=== PATIENT | male | born 1935 | race Two or more races ===

== ENCOUNTER 2018-09-02 22:23 | Emergency (ER) | payer SELFPAY ==
[~2018-09-02] VITALS: Ht 167.6 cm; Wt 88.5 kg
[2018-09-02 23:50] VITALS: BP 136/70
== END 2018-09-02 23:50 | disposition home or self-care (01) ==
LOC: ER 22:23
DX: Z04.1 Encounter for examination and observation following transport accident (principal); F10.920 Alcohol use, unspecified with intoxication, uncomplicated; E11.9 Type 2 diabetes mellitus without complications; Y90.0 Blood alcohol level of less than 20 mg/100 ml; V43.52XA Car driver injured in collision with other type car in traffic accident, initial encounter; Y93.89 Activity, other specified; Y99.8 Other external cause status; Y92.410 Unspecified street and highway as the place of occurrence of the external cause

== ENCOUNTER 2023-04-19 01:23 | Inpatient (IN) | payer OTHER ==
[~2023-04-19] VITALS: Ht 167.6 cm; Wt 81.8 kg
[2023-04-19] VITALS (9 sets, daily range): BP systolic 103–165; BP diastolic 62–87; PULSE 54–91; RESP 17–19; TEMP 36.9; O2SAT 92–98
[~2023-04-19 01:23] MED LIST: AMIO200T13 PO; ATOR20TA50 PO; CLOP75TA28 PO; LOSA50TA46 PO; MET50T PO
[2023-04-19] MEDS ORDERED: SITA25TA3 PO (03:12)
[2023-04-19] MEDS ORDERED: FUR20T PO (03:12)
[2023-04-19] MEDS ORDERED: GABA-1250 PO (03:12)
[2023-04-19] MEDS ORDERED: ACETAMINOPHEN 325 MG TAB PO PRN ×2 (04:15→04:30)
[2023-04-19] MEDS ORDERED: HYDROcodone-ACET 5/325MG TAB PO PRN (04:15)
[2023-04-19] MEDS ORDERED: MORPHINE SULFATE INJ 2 MG/ml SYRG IV PRN (04:15)
[2023-04-19] MEDS ORDERED: DEXTROSE (50%) 50ML SYRG IV PRN ×2 (04:15→04:30)
[2023-04-19] MEDS ORDERED: ONDANSETRON HCL 4 MG/2 ML VIAL IV PRN ×2 (04:15→04:30)
[2023-04-19] MEDS: InsuLIN REG 1unit/0.01ml Soln (100units/ml) SC SCH ×4 (06:05→22:00)
[2023-04-19] MEDS: ACCU-CHEK COMFORT CURVE STRIP VI SCH ×4 (06:06→22:00)
[2023-04-19] MEDS ORDERED: ACCU-CHEK COMFORT CURVE STRIP VI SCH (07:00)
[2023-04-19] MEDS ORDERED: InsuLIN REG 1unit/0.01ml Soln (100units/ml) SC SCH (07:00)
[2023-04-19 09:43] LABS: Basophils # (auto) 0 10 ^3/uL (0-0.2); Basophils % (auto) 0.2 % (0.0-2.0); Eosinophils # (auto) 0.2 10 ^3/uL (0-0.8); Eosinophils % (auto) 2.5 % (0.0-7.0); Hematocrit 42.3 % (41.0-53.0); Hemoglobin 14.1 g/dL (13.5-17.5); Lymphocytes # (auto) 0.5 10 ^3/uL (0.4-5.4); Lymphocytes % (auto) 6.3 % (10.0-50.0); Mean Corpuscular Hemoglobin 28.6 pg (28.0-32.0); Mean Corpuscular Hgb Conc. 33.4 g/dL (32.0-36.0); Mean Corpuscular Volume 85.6 fL (80.0-100.0); Monocytes # (auto) 0.4 10 ^3/uL (0-1.3); Monocytes % (auto) 4.3 % (0.0-12.0); Neutrophils # (auto) 7.3 10 ^3/uL (1.6-8.6); Neutrophils % (auto) 86.7 % (37.0-80.0); Red Blood Cells 4.94 10^6/uL (4.5-5.90); Red Cell Distribution Width 14.8 % (11.8-14.3); White Blood Cell 8.4 10^3/uL (4.4-10.8)
[2023-04-19] MEDS ORDERED: METOPROLOL TARTRATE 25 MG TAB PO SCH (10:00)
[2023-04-19] MEDS ORDERED: AMIODARONE HCL 200 MG TAB PO SCH (10:00)
[2023-04-19] MEDS ORDERED: LOSARTAN POTASSIUM 50 MG TAB PO SCH (10:00)
[2023-04-19] MEDS ORDERED: MEMANTINE HCL 5 MG TAB PO SCH (10:00)
[2023-04-19 10:08] LABS: INR 1.26 (0.9-1.15); Partial Thromboplastin Time 31.7 SEC (24.5-34.5)
[2023-04-19 10:12] LABS: Albumin 2.9 g/dL (3.4-5.0); Calcium 8.3 mg/dL (8.5-10.1); Potassium 3.6 mmol/L (3.5-5.1)
[2023-04-19 10:16] LABS: Bilirubin, Total 0.7 mg/dL (0.2-1.0); Total Protein 6.3 g/dL (6.4-8.2)
[2023-04-19] MEDS: MEMANTINE HCL 5 MG TAB PO SCH ×2 (10:19→23:46)
[2023-04-19] MEDS: LOSARTAN POTASSIUM 50 MG TAB PO SCH (10:22)
[2023-04-19] MEDS: AMIODARONE HCL 200 MG TAB PO SCH ×2 (10:22→23:46)
[2023-04-19] MEDS: METOPROLOL TARTRATE 25 MG TAB PO SCH ×2 (10:23→22:00)
[2023-04-19 12:08] LABS: Urine Bacteria NONE SEEN /hpf (None Seen); Urine Blood Negative /uL (Negative); Urine Clarity Clear (Clear); Urine Color Yellow (Yellow); Urine Protein, UAD TRACE (Negative); Urine Specific Gravity 1.018 (1.001-1.035); Urine Urobilinogen Normal (Negative); Urine WBC <1 /hpf (0 - 3)
[2023-04-19 12:23] LABS: Alcohol, Urine < 3.0 mg/dL (0-10); Amphetamine Screen, Urine NEGATIVE (NEGATIVE); Barbiturate Scree,Urine NEGATIVE (NEGATIVE); Benzodiazephine Screen, Urine NEGATIVE (NEGATIVE); Cannabinoid Screen, Urine NEGATIVE (NEGATIVE); Cocaine Screen, Urine NEGATIVE (NEGATIVE); Phencyclidine Screen, Urine NEGATIVE (NEGATIVE)
[2023-04-19 12:33] LABS: Opiate Scree,Urine NEGATIVE (NEGATIVE)
[2023-04-19] MEDS: HYDROcodone-ACET 5/325MG TAB PO PRN (17:03)
[2023-04-19] MEDS ORDERED: ATORVASTATIN 20 MG TAB PO SCH (22:00)
[2023-04-19] MEDS: ATORVASTATIN 20 MG TAB PO SCH (23:46)
[2023-04-20] VITALS (13 sets, daily range): BP systolic 100–139; BP diastolic 39–75; PULSE 68–97; RESP 11–22; TEMP 97.6–98.6; O2SAT 92–98
[2023-04-20] MEDS: MORPHINE SULFATE INJ 2 MG/ml SYRG IV PRN ×2 (01:06→08:34)
[2023-04-20] MEDS: InsuLIN REG 1unit/0.01ml Soln (100units/ml) SC SCH ×4 (05:43→22:00)
[2023-04-20] MEDS: ACCU-CHEK COMFORT CURVE STRIP VI SCH ×4 (07:00→22:16)
[2023-04-20 08:28] LABS: Basophils # (auto) 0 10 ^3/uL (0-0.2); Basophils % (auto) 0.2 % (0.0-2.0); Eosinophils # (auto) 0.2 10 ^3/uL (0-0.8); Eosinophils % (auto) 2.2 % (0.0-7.0); Hematocrit 41.7 % (41.0-53.0); Hemoglobin 13.8 g/dL (13.5-17.5); Lymphocytes # (auto) 0.7 10 ^3/uL (0.4-5.4); Lymphocytes % (auto) 8.2 % (10.0-50.0); Mean Corpuscular Hemoglobin 28.4 pg (28.0-32.0); Monocytes # (auto) 0.7 10 ^3/uL (0-1.3); Monocytes % (auto) 8.3 % (0.0-12.0); Neutrophils # (auto) 7.1 10 ^3/uL (1.6-8.6); Neutrophils % (auto) 81.1 % (37.0-80.0); Red Blood Cells 4.84 10^6/uL (4.5-5.90); Red Cell Distribution Width 14.7 % (11.8-14.3); White Blood Cell 8.7 10^3/uL (4.4-10.8)
[2023-04-20 08:41] LABS: Albumin 2.9 g/dL (3.4-5.0); Calcium 8.4 mg/dL (8.5-10.1)
[2023-04-20 08:47] LABS: BUN/Creatinine Ratio 15.1 (10.0-20.0); Bilirubin, Total 0.8 mg/dL (0.2-1.0); Total Protein 6.2 g/dL (6.4-8.2)
[2023-04-20] MEDS ORDERED: TRANEXAMIC ACID 20 ML ONE (09:35)
[2023-04-20] MEDS ORDERED: ROPIVACAINE 0.5% (5MG/ML) 20ML AMPULE IJ ONE (09:35)
[2023-04-20] MEDS ORDERED: VANCOMYCIN HCL 1000 MG VL ONE (09:36)
[2023-04-20] MEDS ORDERED: EPINEPHrine HCL 1 MG/1 ML AMP ONE (09:40)
[2023-04-20] MEDS: AMIODARONE HCL 200 MG TAB PO SCH ×2 (10:03→22:58)
[2023-04-20] MEDS: METOPROLOL TARTRATE 25 MG TAB PO SCH ×2 (10:03→22:59)
[2023-04-20] MEDS: LOSARTAN POTASSIUM 50 MG TAB PO SCH (10:04)
[2023-04-20] MEDS: MEMANTINE HCL 5 MG TAB PO SCH ×2 (10:04→22:59)
[2023-04-20] MEDS ORDERED: BUPIVACAINE 0.25% INJ 50ML VIAL ONE (12:08)
[2023-04-20] MEDS ORDERED: MORPHINE SULF PF 5 MG/10 ML VIAL ONE (12:09)
[2023-04-20] MEDS ORDERED: KETOROLAC TROMETH 30 MG/ML 1ML VIAL ONE (12:09)
[2023-04-20] MEDS ORDERED: ceFAZolin 1GM/50ML 100 ML IV ONE (12:14)
[2023-04-20] MEDS ORDERED: SODIUM CHLORIDE LOCK 10 ML ONE (12:15)
[2023-04-20] MEDS ORDERED: MEPERIDINE HCL (50 MG/ML) 1 ML VIAL ONE (12:15)
[2023-04-20] MEDS ORDERED: MIDAZOLAM HCL 2MG/2ML 2ml VIAL (1mg/ml) ONE (12:15)
[2023-04-20] MEDS ORDERED: ROCURONIUM 10MG/ML 10ML VIAL IV ONE (12:15)
[2023-04-20] MEDS ORDERED: ETOMIDATE (2MG/ML) 20ML VIAL IV ONE (12:15)
[2023-04-20] MEDS ORDERED: ONDANSETRON HCL 4 MG/2 ML VIAL ONE (12:15)
[2023-04-20] MEDS ORDERED: fentaNYL CITRATE 100 MCG/2 ML VL ONE (12:15)
[2023-04-20] MEDS ORDERED: ACCU-CHEK COMFORT CURVE STRIP VI ONE (13:45)
[2023-04-20] MEDS ORDERED: METOCLOPRAMIDE HCL 5MG/ml INJ 2ml VIAL IV PRN (13:45)
[2023-04-20] MEDS ORDERED: HYDROmorphone HCL 2 MG/ML VL/or syr IV PRN ×2 (13:45)
[2023-04-20] MEDS ORDERED: MORPHINE SULFATE INJ 2 MG/ml SYRG IV PRN (13:45)
[2023-04-20] MEDS: LACTATED RINGER'S 1,000 ML IV SCH (14:15)
[2023-04-20] MEDS ORDERED: IPRATROPIUM BROM 0.5 MG/2.5ML INH SOL ONE (14:54)
[2023-04-20] MEDS ORDERED: ALBUTEROL SULF 2.5 MG/0.5ML(0.5%) NEB SOLN ONE (14:54)
[2023-04-20] MEDS ORDERED: IPRATROPIUM BROM 0.5 MG/2.5ML INH SOL NEB ONE (15:00)
[2023-04-20] MEDS ORDERED: ALBUTEROL SULF 2.5 MG/0.5ML(0.5%) NEB SOLN NEB ONE (15:00)
[2023-04-20] MEDS ORDERED: BACITRACIN TOP OINT 1 UD PKG TOP SCH (19:37)
[2023-04-20] MEDS: ceFAZolin 1GM/50ML 50 ML IV SCH (22:56)
[2023-04-20] MEDS: ATORVASTATIN 20 MG TAB PO SCH (22:59)
[2023-04-21] VITALS (27 sets, daily range): BP systolic 83–157; BP diastolic 51–90; PULSE 69–105; RESP 11–25; TEMP 97.6–99.6; O2SAT 91–100
[2023-04-21] MEDS: LACTATED RINGER'S 1,000 ML IV SCH (04:29)
[2023-04-21] MEDS: MORPHINE SULFATE INJ 2 MG/ml SYRG IV PRN (04:41)
[2023-04-21 05:11] LABS: Basophils # (auto) 0 10 ^3/uL (0-0.2); Basophils % (auto) 0.2 % (0.0-2.0); Eosinophils # (auto) 0.2 10 ^3/uL (0-0.8); Eosinophils % (auto) 3.6 % (0.0-7.0); Hematocrit 39.4 % (41.0-53.0); Hemoglobin 12.9 g/dL (13.5-17.5); Lymphocytes # (auto) 0.6 10 ^3/uL (0.4-5.4); Lymphocytes % (auto) 8.4 % (10.0-50.0); Mean Corpuscular Hemoglobin 28.5 pg (28.0-32.0); Mean Corpuscular Hgb Conc. 32.7 g/dL (32.0-36.0); Monocytes # (auto) 0.5 10 ^3/uL (0-1.3); Monocytes % (auto) 7.9 % (0.0-12.0); Neutrophils # (auto) 5.5 10 ^3/uL (1.6-8.6); Neutrophils % (auto) 79.9 % (37.0-80.0); Red Blood Cells 4.53 10^6/uL (4.5-5.90); Red Cell Distribution Width 14.7 % (11.8-14.3); White Blood Cell 6.8 10^3/uL (4.4-10.8)
[2023-04-21 05:42] LABS: BUN/Creatinine Ratio 14.9 (10.0-20.0); Calcium 8.1 mg/dL (8.5-10.1); Potassium 4.5 mmol/L (3.5-5.1)
[2023-04-21] MEDS: ACCU-CHEK COMFORT CURVE STRIP VI SCH ×4 (06:44→22:33)
[2023-04-21] MEDS: InsuLIN REG 1unit/0.01ml Soln (100units/ml) SC SCH ×4 (06:44→22:00)
[2023-04-21] MEDS: ceFAZolin 1GM/50ML 50 ML IV SCH ×3 (06:44→22:31)
[2023-04-21] MEDS: ENOXAPARIN SOD 40 MG/0.4 ML SYRINGE SC SCH (07:57)
[2023-04-21] MEDS: MEMANTINE HCL 5 MG TAB PO SCH ×2 (07:57→22:31)
[2023-04-21] MEDS: AMIODARONE HCL 200 MG TAB PO SCH ×2 (07:58→22:32)
[2023-04-21] MEDS: LOSARTAN POTASSIUM 50 MG TAB PO SCH (07:59)
[2023-04-21] MEDS: METOPROLOL TARTRATE 25 MG TAB PO SCH ×2 (07:59→22:32)
[2023-04-21] MEDS: MUPIROCIN 2% OINT 15gm or 22gm FOR MRSA NARES EACHNOSTRI SCH ×2 (12:24→22:31)
[2023-04-21] MEDS: traMADol HCL 50 MG TAB PO PRN (18:39)
[2023-04-21] MEDS: ATORVASTATIN 20 MG TAB PO SCH (22:33)
[2023-04-22] VITALS (21 sets, daily range): BP systolic 107–138; BP diastolic 58–84; PULSE 65–88; RESP 13–24; TEMP 97.1–98.7; O2SAT 93–99
[2023-04-22 04:20] LABS: Basophils # (auto) 0 10 ^3/uL (0-0.2); Basophils % (auto) 0.2 % (0.0-2.0); Eosinophils # (auto) 0.4 10 ^3/uL (0-0.8); Eosinophils % (auto) 5.3 % (0.0-7.0); Hematocrit 36.4 % (41.0-53.0); Lymphocytes # (auto) 0.8 10 ^3/uL (0.4-5.4); Lymphocytes % (auto) 11.4 % (10.0-50.0); Mean Corpuscular Hemoglobin 28.6 pg (28.0-32.0); Mean Corpuscular Volume 86.7 fL (80.0-100.0); Monocytes # (auto) 0.7 10 ^3/uL (0-1.3); Monocytes % (auto) 9.4 % (0.0-12.0); Neutrophils # (auto) 5.3 10 ^3/uL (1.6-8.6); Neutrophils % (auto) 73.7 % (37.0-80.0); Nucleated Red Blood Cells % 0.1 %; Red Cell Distribution Width 14.4 % (11.8-14.3); White Blood Cell 7.2 10^3/uL (4.4-10.8)
[2023-04-22 04:39] LABS: Albumin 2.4 g/dL (3.4-5.0); Potassium 4.6 mmol/L (3.5-5.1)
[2023-04-22 04:44] LABS: BUN/Creatinine Ratio 17.1 (10.0-20.0); Bilirubin, Total 0.5 mg/dL (0.2-1.0)
[2023-04-22] MEDS: ceFAZolin 1GM/50ML 50 ML IV SCH ×3 (06:23→22:01)
[2023-04-22] MEDS: ACCU-CHEK COMFORT CURVE STRIP VI SCH ×4 (06:49→22:23)
[2023-04-22] MEDS: InsuLIN REG 1unit/0.01ml Soln (100units/ml) SC SCH ×4 (06:49→22:00)
[2023-04-22] MEDS: METOPROLOL TARTRATE 25 MG TAB PO SCH ×2 (07:24→22:02)
[2023-04-22] MEDS: ENOXAPARIN SOD 40 MG/0.4 ML SYRINGE SC SCH (07:24)
[2023-04-22] MEDS: MEMANTINE HCL 5 MG TAB PO SCH ×2 (07:24→22:02)
[2023-04-22] MEDS: LOSARTAN POTASSIUM 50 MG TAB PO SCH (07:25)
[2023-04-22] MEDS: AMIODARONE HCL 200 MG TAB PO SCH ×2 (07:25→22:03)
[2023-04-22] MEDS: MUPIROCIN 2% OINT 15gm or 22gm FOR MRSA NARES EACHNOSTRI SCH ×2 (07:27→22:03)
[2023-04-22] MEDS ORDERED: ERGOCALCIFEROL 50,000 UNIT(1.25MG) CAP PO SCH (10:30)
[2023-04-22] MEDS: traMADol HCL 50 MG TAB PO PRN (22:02)
[2023-04-22] MEDS: ATORVASTATIN 20 MG TAB PO SCH (22:03)
[2023-04-23] VITALS (19 sets, daily range): BP systolic 105–152; BP diastolic 72–83; PULSE 60–85; RESP 12–20; TEMP 97.4–99; O2SAT 93–97
[2023-04-23 05:17] LABS: Basophils # (auto) 0 10 ^3/uL (0-0.2); Basophils % (auto) 0.4 % (0.0-2.0); Eosinophils # (auto) 0.4 10 ^3/uL (0-0.8); Eosinophils % (auto) 5.4 % (0.0-7.0); Hematocrit 36.9 % (41.0-53.0); Hemoglobin 12.2 g/dL (13.5-17.5); Lymphocytes # (auto) 0.9 10 ^3/uL (0.4-5.4); Lymphocytes % (auto) 12.5 % (10.0-50.0); Mean Corpuscular Hemoglobin 28.2 pg (28.0-32.0); Mean Corpuscular Hgb Conc. 33.2 g/dL (32.0-36.0); Monocytes # (auto) 0.7 10 ^3/uL (0-1.3); Monocytes % (auto) 9.5 % (0.0-12.0); Neutrophils # (auto) 5.3 10 ^3/uL (1.6-8.6); Neutrophils % (auto) 72.2 % (37.0-80.0); Red Blood Cells 4.34 10^6/uL (4.5-5.90); Red Cell Distribution Width 14.6 % (11.8-14.3); White Blood Cell 7.4 10^3/uL (4.4-10.8)
[2023-04-23 05:30] LABS: Calcium 8.1 mg/dL (8.5-10.1); Potassium 4.2 mmol/L (3.5-5.1)
[2023-04-23 05:32] LABS: BUN/Creatinine Ratio 19.3 (10.0-20.0)
[2023-04-23] MEDS: ceFAZolin 1GM/50ML 50 ML IV SCH ×3 (06:32→21:28)
[2023-04-23] MEDS: ACCU-CHEK COMFORT CURVE STRIP VI SCH ×4 (06:32→22:00)
[2023-04-23] MEDS: InsuLIN REG 1unit/0.01ml Soln (100units/ml) SC SCH ×4 (06:32→22:00)
[2023-04-23] MEDS: traMADol HCL 50 MG TAB PO PRN ×2 (06:46→21:25)
[2023-04-23] MEDS: LOSARTAN POTASSIUM 50 MG TAB PO SCH (07:49)
[2023-04-23] MEDS: ENOXAPARIN SOD 40 MG/0.4 ML SYRINGE SC SCH (07:49)
[2023-04-23] MEDS: MUPIROCIN 2% OINT 15gm or 22gm FOR MRSA NARES EACHNOSTRI SCH ×2 (07:50→22:00)
[2023-04-23] MEDS: AMIODARONE HCL 200 MG TAB PO SCH ×2 (07:50→21:25)
[2023-04-23] MEDS: MEMANTINE HCL 5 MG TAB PO SCH ×2 (07:50→21:25)
[2023-04-23] MEDS: METOPROLOL TARTRATE 25 MG TAB PO SCH ×2 (07:50→21:26)
[2023-04-23] MEDS: ATORVASTATIN 20 MG TAB PO SCH (21:25)
[2023-04-24] VITALS (16 sets, daily range): BP systolic 114–149; BP diastolic 61–94; PULSE 60–76; RESP 14–20; TEMP 97.6–98.6; O2SAT 91–100
[2023-04-24] MEDS: ACCU-CHEK COMFORT CURVE STRIP VI SCH ×4 (06:12→21:45)
[2023-04-24] MEDS: ceFAZolin 1GM/50ML 50 ML IV SCH ×2 (06:12→15:36)
[2023-04-24] MEDS: InsuLIN REG 1unit/0.01ml Soln (100units/ml) SC SCH ×4 (06:15→21:44)
[2023-04-24 08:05] LABS: Basophils # (auto) 0 10 ^3/uL (0-0.2); Basophils % (auto) 0.4 % (0.0-2.0); Eosinophils # (auto) 0.3 10 ^3/uL (0-0.8); Eosinophils % (auto) 3.9 % (0.0-7.0); Hematocrit 37.2 % (41.0-53.0); Hemoglobin 12.3 g/dL (13.5-17.5); Lymphocytes # (auto) 0.8 10 ^3/uL (0.4-5.4); Lymphocytes % (auto) 10.9 % (10.0-50.0); Mean Corpuscular Hemoglobin 28.3 pg (28.0-32.0); Mean Corpuscular Hgb Conc. 33.1 g/dL (32.0-36.0); Mean Corpuscular Volume 85.5 fL (80.0-100.0); Monocytes # (auto) 0.7 10 ^3/uL (0-1.3); Monocytes % (auto) 10.2 % (0.0-12.0); Neutrophils # (auto) 5.4 10 ^3/uL (1.6-8.6); Neutrophils % (auto) 74.6 % (37.0-80.0); Nucleated Red Blood Cells % 0.1 %; Red Blood Cells 4.35 10^6/uL (4.5-5.90); Red Cell Distribution Width 14.4 % (11.8-14.3); White Blood Cell 7.3 10^3/uL (4.4-10.8)
[2023-04-24] MEDS: LOSARTAN POTASSIUM 50 MG TAB PO SCH (08:21)
[2023-04-24] MEDS: MEMANTINE HCL 5 MG TAB PO SCH ×2 (08:21→21:05)
[2023-04-24] MEDS: ENOXAPARIN SOD 40 MG/0.4 ML SYRINGE SC SCH (08:21)
[2023-04-24] MEDS: AMIODARONE HCL 200 MG TAB PO SCH ×2 (08:22→21:04)
[2023-04-24] MEDS: traMADol HCL 50 MG TAB PO PRN (08:22)
[2023-04-24] MEDS: MUPIROCIN 2% OINT 15gm or 22gm FOR MRSA NARES EACHNOSTRI SCH ×2 (08:22→21:42)
[2023-04-24] MEDS: METOPROLOL TARTRATE 25 MG TAB PO SCH ×2 (08:22→21:09)
[2023-04-24 08:25] LABS: Calcium 8.4 mg/dL (8.5-10.1); Potassium 3.9 mmol/L (3.5-5.1)
[2023-04-24] MEDS: HYDROcodone-ACET 5/325MG TAB PO PRN (15:36)
[2023-04-24] MEDS: ATORVASTATIN 20 MG TAB PO SCH (21:42)
[2023-04-25] VITALS (7 sets, daily range): BP systolic 103–153; BP diastolic 50–79; PULSE 50–80; RESP 14–20; TEMP 97.1–98.2; O2SAT 95–98
[2023-04-25 05:42] LABS: Basophils # (auto) 0 10 ^3/uL (0-0.2); Basophils % (auto) 0.4 % (0.0-2.0); Eosinophils # (auto) 0.4 10 ^3/uL (0-0.8); Hematocrit 37.3 % (41.0-53.0); Hemoglobin 12.7 g/dL (13.5-17.5); Lymphocytes % (auto) 11.9 % (10.0-50.0); Mean Corpuscular Hemoglobin 28.7 pg (28.0-32.0); Mean Corpuscular Volume 84.3 fL (80.0-100.0); Monocytes # (auto) 0.7 10 ^3/uL (0-1.3); Monocytes % (auto) 8.1 % (0.0-12.0); Neutrophils # (auto) 6.2 10 ^3/uL (1.6-8.6); Neutrophils % (auto) 74.6 % (37.0-80.0); Nucleated Red Blood Cells % 0.1 %; Red Blood Cells 4.42 10^6/uL (4.5-5.90); Red Cell Distribution Width 14.5 % (11.8-14.3); White Blood Cell 8.3 10^3/uL (4.4-10.8)
[2023-04-25 06:00] LABS: Albumin 2.5 g/dL (3.4-5.0); Calcium 8.7 mg/dL (8.5-10.1); Potassium 4.6 mmol/L (3.5-5.1)
[2023-04-25 06:04] LABS: BUN/Creatinine Ratio 23.4 (10.0-20.0); Bilirubin, Total 0.5 mg/dL (0.2-1.0); Total Protein 6.2 g/dL (6.4-8.2)
[2023-04-25] MEDS: InsuLIN REG 1unit/0.01ml Soln (100units/ml) SC SCH ×4 (06:21→21:35)
[2023-04-25] MEDS: ACCU-CHEK COMFORT CURVE STRIP VI SCH ×4 (06:21→21:37)
[2023-04-25] MEDS: MUPIROCIN 2% OINT 15gm or 22gm FOR MRSA NARES EACHNOSTRI SCH ×2 (09:20→21:17)
[2023-04-25] MEDS: ENOXAPARIN SOD 40 MG/0.4 ML SYRINGE SC SCH (09:21)
[2023-04-25] MEDS: LOSARTAN POTASSIUM 50 MG TAB PO SCH (09:21)
[2023-04-25] MEDS: METOPROLOL TARTRATE 25 MG TAB PO SCH ×2 (09:22→21:32)
[2023-04-25] MEDS: traMADol HCL 50 MG TAB PO PRN (09:22)
[2023-04-25] MEDS: MEMANTINE HCL 5 MG TAB PO SCH ×2 (09:23→21:16)
[2023-04-25] MEDS: AMIODARONE HCL 200 MG TAB PO SCH ×2 (09:23→21:17)
[2023-04-25] MEDS: ATORVASTATIN 20 MG TAB PO SCH (21:15)
[2023-04-26 05:00] VITALS: BP 138/80; PULSE 62; RESP 20; TEMP 98.1; O2SAT 95
[2023-04-26 05:25] LABS: Albumin 2.4 g/dL (3.4-5.0); BUN/Creatinine Ratio 25.2 (10.0-20.0); Bilirubin, Total 0.7 mg/dL (0.2-1.0); Calcium 8.7 mg/dL (8.5-10.1)
[2023-04-26] MEDS: ACCU-CHEK COMFORT CURVE STRIP VI SCH ×2 (06:25→11:25)
[2023-04-26] MEDS: InsuLIN REG 1unit/0.01ml Soln (100units/ml) SC SCH ×2 (06:26→11:24)
[2023-04-26 08:00] VITALS: PULSE 73; RESP 18; O2SAT 93
[2023-04-26 09:07] VITALS: BP 139/80; PULSE 73; RESP 18; TEMP 98.7; O2SAT 93
[2023-04-26] MEDS: LOSARTAN POTASSIUM 50 MG TAB PO SCH (09:53)
[2023-04-26] MEDS: AMIODARONE HCL 200 MG TAB PO SCH (09:53)
[2023-04-26] MEDS: MEMANTINE HCL 5 MG TAB PO SCH (09:54)
[2023-04-26] MEDS: METOPROLOL TARTRATE 25 MG TAB PO SCH (09:54)
[2023-04-26] MEDS: MUPIROCIN 2% OINT 15gm or 22gm FOR MRSA NARES EACHNOSTRI SCH (09:55)
[2023-04-26 10:00] VITALS: O2SAT 93
[2023-04-26] MEDS ORDERED: APIXABAN 2.5 MG TAB PO SCH (10:00)
[2023-04-26 12:47] VITALS: BP 113/71; PULSE 65; RESP 17; TEMP 98.9; O2SAT 96
[2023-04-26 13:08] LABS: COVID19 ANTIGEN SOFIA FIA NEGATIVE (NEGATIVE)
[2023-04-26 16:21] VITALS: BP 117/67; PULSE 59; RESP 17; TEMP 98.1; O2SAT 95
== END 2023-04-26 17:00 | DRG 522 ==
LOC: WEST WING 02:27 → UNDOADMIN 02:27 → TELE 04:14 → TELE-WESTW 04:35 → DOU IN ICU 04-20 17:59 → CENTRAL 04-24 13:22
PROVIDERS: ADMIT Internal Medicine; ATTEND Internal Medicine
PROC: 0SRS0J9 Replacement of Left Hip Joint, Femoral Surface with Synthetic Substitute, Cemented, Open Approach (ICD-10-PCS; principal; 2023-04-20 12:18)
DX: S72.092A Other fracture of head and neck of left femur, initial encounter for closed fracture (principal); I69.354 Hemiplegia and hemiparesis following cerebral infarction affecting left non-dominant side; I10 Essential (primary) hypertension; E11.9 Type 2 diabetes mellitus without complications; F03.90 Unspecified dementia, unspecified severity, without behavioral disturbance, psychotic disturbance, mood disturbance, and anxiety; E78.5 Hyperlipidemia, unspecified; Z20.822 Contact with and (suspected) exposure to COVID-19; W18.39XA Other fall on same level, initial encounter; I48.91 Unspecified atrial fibrillation; E66.9 Obesity, unspecified; I44.1 Atrioventricular block, second degree; Z83.3 Family history of diabetes mellitus; Z82.49 Family history of ischemic heart disease and other diseases of the circulatory system; Z79.02 Long term (current) use of antithrombotics/antiplatelets; Y93.89 Activity, other specified; Y92.89 Other specified places as the place of occurrence of the external cause; Y99.8 Other external cause status; Z68.29 Body mass index [BMI] 29.0-29.9, adult; Z90.49 Acquired absence of other specified parts of digestive tract; Z88.2 Allergy status to sulfonamides
CPT/HCPCS: 36415; 71045; 72170; 73502; 73700; 80048; 80053; 80307; 81001; 82306; 82962; 84443; 85025; 85610; 85730; 87081; 87426; 94640; 97110; 97116; 97163; 97530; G0378; J0171; J0690; J1815; J1885; J2250; J2405; J3490